=== PATIENT | female | born 1955 | race Two or more races ===

== ENCOUNTER 2017-09-10 16:04 | Emergency (ER) | payer OTHER ==
[2017-09-10 18:13] LABS: BASO % 0.3 % (0.0-1.0); EOS # 0.1 10^3/uL (0.0-0.50); EOS % 1.8 % (0.0-3.0); HEMATOCRIT 41.1 % (36.0-47.0); HEMOGLOBIN 13.7 g/dl (12.0-15.5); IMMATURE GRANULOCYTE % 0.1 % (0-3.0); LYMPH # 3.5 10^3/uL (1.5-4.5); LYMPH % 44.2 % (24.0-44.0); MEAN CORPUSCULAR HEMOGLOBIN 30.9 pg (27.0-33.0); MEAN CORPUSCULAR HGB CONC 33.3 g/dl (32.0-36.5); MEAN CORPUSCULAR VOLUME 92.6 fl (80.0-96.0); MONO # 0.7 10^3/uL (0.0-0.8); MONO % 9.2 % (0.0-5.0); NEUTROPHILS # 3.5 10^3/uL (1.8-7.7); NEUTROPHILS % 44.4 % (36.0-66.0); PLATELET COUNT, AUTOMATED 218 10^3/uL (150-450); RED BLOOD COUNT 4.44 10^6/uL (4.00-5.40); RED CELL DISTRIBUTION WIDTH 13.2 % (11.5-14.5); WHITE BLOOD COUNT 7.8 10^3/uL (4.0-10.0)
[2017-09-10 18:16] LABS: INR 0.92; PROTHROMBIN TIME 12.5 SECONDS (12.1-14.4)
[2017-09-10 18:17] LABS: PARTIAL THROMBOPLASTIN TIME 29.7 SECONDS (25.4-37.6)
[2017-09-10 18:19] LABS: D-DIMER QUANT 563.9 ng/ml (<500)
[2017-09-10 18:21] LABS: ALBUMIN 3.7 GM/DL (3.2-5.2); ALBUMIN/GLOBULIN RATIO 1.06 (1.00-1.93); ALT/SGPT 35 U/L (12-78); ANION GAP 6 MEQ/L (8-16); AST/SGOT 18 U/L (7-37); BILIRUBIN,DIRECT < 0.1 MG/DL (0.0-0.2); BILIRUBIN,TOTAL 0.2 MG/DL (0.2-1.0); BLOOD UREA NITROGEN 14 MG/DL (7-18); C REACTIVE PROTEIN QUANTITATIV 0.55 MG/DL (0.00-0.30); CALCIUM LEVEL 8.7 MG/DL (8.8-10.2); CARBON DIOXIDE LEVEL 29 MEQ/L (21-32); CHLORIDE LEVEL 108 MEQ/L (98-107); CPK CREATINE PHOSPHOKINASE 144 U/L (26-192); CREATININE FOR GFR 0.95 MG/DL (0.55-1.30); GLOMERULAR FILTRATION RATE > 60.0 (>45); GLUCOSE, FASTING 93 MG/DL (70-100); LIPASE 104 U/L (73-393); POTASSIUM SERUM 4.7 MEQ/L (3.5-5.1); SODIUM LEVEL 143 MEQ/L (136-145); TOTAL PROTEIN 7.2 GM/DL (6.4-8.2); TROPONIN I < 0.02 NG/ML (< 0.10)
[2017-09-10] MEDS ORDERED: NITROGLYCERIN 0.4 MG SUBL TABLET SL (18:22)
[2017-09-10 18:27] LABS: ALKALINE PHOSPHATASE 87 U/L (45-117); CK-MB VALUE MASS < 1.0 NG/ML (<3.6); FREE T4 0.99 NG/DL (0.76-1.46); MB/CK RELATIVE INDEX 0.69 (< OR =4); NT-PRO BNP 70 PG/ML (<125); THYROID STIMULATING HORMONE 0.785 uIU/ML (0.358-3.740)
[2017-09-10] MEDS: ASPIRIN 81 MG CHEW TABLET PO (18:30)
[2017-09-10] MEDS ORDERED: ISOVUE-370 76% 100ML VIAL (Q9967) As Ordered (18:56)
[2017-09-10 21:12] LABS: CK-MB VALUE MASS < 1.0 NG/ML (<3.6); CPK CREATINE PHOSPHOKINASE 139 U/L (26-192); MB/CK RELATIVE INDEX 0.71 (< OR =4); TROPONIN I < 0.02 NG/ML (< 0.10)
[2017-09-10] MEDS ORDERED: PANTOPRAZOLE 40MG TAB (PROTONIX) PO (21:30)
== END 2017-09-10 21:33 | disposition home or self-care (01) ==
LOC: M ED 16:04
DX: R07.89 Other chest pain (principal); J30.2 Other seasonal allergic rhinitis
CPT/HCPCS: Q9967

== ENCOUNTER → 2020-02-28 | Outpatient (CLI) | payer OTHER ==
[~2020-02-28] MED LIST: OMEP40CA97 PO
--- NOTE | 2020-02-28 16:20 | REP ---
INDICATION: STIFFNESS OF LEFT SHOULDER. COMPARISON: None. TECHNIQUE: Axial, oblique coronal, and oblique sagittal imaging planes utilized. T1 and T2 weighted scans are included with without fat saturation in the usual fashion. FINDINGS: The left glenohumeral and acromioclavicular joints are normally aligned. There is osteoarthritic hypertrophy of the AC joint with subcortical cyst formation and subtle marrow edema. There are cysts subcortical cysts in the superolateral humeral head. These may be associated with impingement. There is a small quantity of subacromial subdeltoid bursal fluid. No significant glenohumeral effusion is seen. There is some thickening and increased signal intensity in the distal supraspinatus tendon diffusely on oblique coronal T1 weighted scans. No full-thickness cuff tear is seen. At the distal insertion there is a focus of T2 hyperintensity consistent with partial thickness distal insertion supraspinatus tear. Infraspinatus tendon is unremarkable. Subscapularis tendon appears intact. Biceps tendon is in the bony bicipital groove and appears unremarkable. The superior labral cartilage shows some increased signal intensity without a definable tear. There is mild fraying of the anterior and posterior labral cartilage is as well. No loose body is seen. There is a homogeneous fat density lesion in the posterior deltoid muscle consistent with a benign lipoma. This measures 3.0 cm in greatest anterior to posterior diameter. It is incompletely seen on oblique coronal and oblique sagittal images and appears to have a longer craniocaudal diameter. No juxta-articular cyst or other mass is observed. IMPRESSION: AC joint osteoarthritis.. Distal supraspinatus tendinitis tendinosis change. Partial-thickness distal insertion supraspinatus cuff lesion. Small subacromial subdeltoid bursal effusion. 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 <Electronically signed by Parrish Sherman > 02/28/20 1807
== END ==
LOC: M RAD 14:44
PROVIDERS: ATTEND Orthopaedic Surgery Sports Medicine
DX: M25.612 Stiffness of left shoulder, not elsewhere classified (principal)

== ENCOUNTER → 2020-03-07 | Outpatient (CLI) | payer OTHER | LOC: M ADAMS 10:25 | PROVIDERS: ATTEND Orthopaedic Surgery Sports Medicine | DX: Z53.21 Procedure and treatment not carried out due to patient leaving prior to being seen by health care provider (principal) ==

== ENCOUNTER → 2021-07-30 | Outpatient (CLI) | payer MEDICARE, OTHER ==
[~2021-07-30] MED LIST changes: +OMEP40CA4 PO; -OMEP40CA97 PO
[2021-07-30 13:49] LABS: BLOOD UREA NITROGEN 14 MG/DL (7-18); CREATININE FOR GFR 0.89 MG/DL (0.55-1.30); GLOMERULAR FILTRATION RATE > 60.0 (>45)
== END ==
LOC: M PLALAB 10:51
PROVIDERS: ATTEND Physician Assistant
DX: M70.61 Trochanteric bursitis, right hip (principal)

== ENCOUNTER → 2021-10-30 | Outpatient (CLI) | payer MEDICARE ==
[~2021-10-30] MED LIST changes: +ISOVUE-300 61% 50ML VIAL As Ordered ONE; +LIDOCAINE 1% MDV 20ML VIAL As Ordered ONE; +methylPREDNISolone SUSP 40MG/ML 1ML VIAL (DEPO MEDROL) As Ordered ONE
== END ==
LOC: M RAD 13:55
PROVIDERS: ATTEND Physician Assistant
DX: M16.11 Unilateral primary osteoarthritis, right hip (principal)
CPT/HCPCS: 76000; J1030; Q9967

== ENCOUNTER → 2021-11-28 | Outpatient (CLI) | payer MEDICARE ==
[~2021-11-28] MED LIST changes: -ISOVUE-300 61% 50ML VIAL As Ordered ONE; -LIDOCAINE 1% MDV 20ML VIAL As Ordered ONE; -methylPREDNISolone SUSP 40MG/ML 1ML VIAL (DEPO MEDROL) As Ordered ONE
[2021-11-28 16:24] LABS: BASO % 0.5 % (0.0-1.0); EOS # 0.2 10^3/uL (0.0-0.5); EOS % 1.9 % (0.0-3.0); HEMOGLOBIN 14.1 g/dl (12.0-15.5); LYMPH # 2.9 10^3/uL (1.5-5.0); LYMPH % 34.1 % (24.0-44.0); MEAN CORPUSCULAR HEMOGLOBIN 30.5 pg (27.0-33.0); MONO # 0.9 10^3/uL (0.0-0.8); MONO % 10.6 % (2.0-8.0); NEUTROPHILS # 4.5 10^3/uL (1.5-8.5); NEUTROPHILS % 52.8 % (36.0-66.0); PLATELET COUNT, AUTOMATED 240 10^3/uL (150-450); RED BLOOD COUNT 4.63 10^6/uL (4.00-5.40); WHITE BLOOD COUNT 8.4 10^3/uL (4.0-10.0)
[2021-11-28 16:48] LABS: C REACTIVE PROTEIN QUANTITATIV 1.16 MG/DL (0.00-0.30); RHEUMATOID FACTOR QUANT < 10.0 IU/ML (<15.0)
[2021-11-28 18:04] LABS: ERYTHROCYTE SEDIMENTATION RATE 21 mm/hr (0-30)
== END ==
LOC: M PLALAB 12:11
PROVIDERS: ATTEND Physician Assistant
DX: M70.61 Trochanteric bursitis, right hip (principal); Z79.899 Other long term (current) drug therapy

== ENCOUNTER → 2022-02-16 | Outpatient (REF) | payer MEDICARE ==
[2022-02-16 17:46] LABS: BASO % 0.3 % (0.0-1.0); EOS # 0.2 10^3/uL (0.0-0.5); EOS % 2.7 % (0.0-3.0); HEMOGLOBIN 15.6 g/dl (12.0-15.5); LYMPH # 2.9 10^3/uL (1.5-5.0); LYMPH % 40.8 % (24.0-44.0); MEAN CORPUSCULAR HEMOGLOBIN 30.2 pg (27.0-33.0); MEAN CORPUSCULAR HGB CONC 31.8 g/dl (32.0-36.5); MEAN CORPUSCULAR VOLUME 94.8 fl (80.0-96.0); MONO # 0.6 10^3/uL (0.0-0.8); MONO % 8.3 % (2.0-8.0); NEUTROPHILS # 3.4 10^3/uL (1.5-8.5); NEUTROPHILS % 47.8 % (36.0-66.0); PLATELET COUNT, AUTOMATED 233 10^3/uL (150-450); RED BLOOD COUNT 5.17 10^6/uL (4.00-5.40); WHITE BLOOD COUNT 7.1 10^3/uL (4.0-10.0)
[2022-02-16 18:05] LABS: C REACTIVE PROTEIN QUANTITATIV 0.6 MG/DL (<1.0)
[2022-02-16 18:07] LABS: RHEUMATOID FACTOR QUANT 4.4 IU/ML (<14)
[2022-02-16 18:35] LABS: ERYTHROCYTE SEDIMENTATION RATE 13 mm/hr (0-30)
== END ==
LOC: M SFHCCLAY 11:01
PROVIDERS: ATTEND Family Medicine
DX: A69.20 Lyme disease, unspecified (principal); Z15.89 Genetic susceptibility to other disease

== ENCOUNTER → 2022-02-18 | Outpatient (CLI) | payer MEDICARE ==
[~2022-02-18] MED LIST changes: +ISOVUE-300 61% 50ML VIAL ONE; +LIDOCAINE 1% MDV 20ML VIAL ONE; +methylPREDNISolone SUSP 40MG/ML 1ML VIAL (DEPO MEDROL) ONE
== END ==
LOC: M PLAIMG 14:03
PROVIDERS: ATTEND Physician Assistant
DX: M16.11 Unilateral primary osteoarthritis, right hip (principal)
CPT/HCPCS: 20610; 76000; J1030; Q9967